=== PATIENT | male | born 1975 | race Caucasian/White ===

== ENCOUNTER 2023-10-17 03:39 | Emergency (ER) | payer OTHER ==
[~2023-10-17] VITALS: Ht 182.9 cm; Wt 113.0 kg
[2023-10-17 03:44] VITALS: TEMP 98.4
[2023-10-17] MEDS ORDERED: BISM-157 PO (03:50)
[2023-10-17] MEDS ORDERED: SERT-162 PO (03:50)
[2023-10-17] MEDS: ONDANSETRON HCL 4 MG/2 ML VIAL IVP ONE (04:04)
[2023-10-17] MEDS: SODIUM CHLORIDE 0.9% 1,000 ML IV ONE (04:05)
[2023-10-17] MEDS: ACETAMINOPHEN 500 MG TABLET PO ONE (04:06)
[2023-10-17 04:32] LABS: BASOPHILS % (AUTO) 0.3 % (0.0-2.0); EOSINOPHILS % (AUTO) 0.4 % (1.0-6.0); HEMATOCRIT 42.2 % (41-53); HEMOGLOBIN 14.2 g/dL (13.5-17.5); LYMPHOCYTES # (AUTO) 0.5 K/uL (1.0-4.8); LYMPHOCYTES % (AUTO) 3.4 % (22.0-44.0); MEAN CORPUSCULAR HEMOGLOBIN 28.4 pg (26.0-34.0); MEAN CORPUSCULAR HGB CONC 33.7 G/dL (31.0-37.0); MEAN CORPUSCULAR VOLUME 84 fL (80-100); MONOCYTES # (AUTO) 0.5 K/uL (0.1-1.0); MONOCYTES % (AUTO) 3.3 % (2.0-9.0); PLATELET COUNT (AUTO) 266 K/uL (150-450); RED BLOOD CELL COUNT(AUTO) 5.02 MIL/uL (4.50-5.90); RED CELL DISTRIBUTION WIDTH 14.2 % (11.5-14.5); WHITE BLOOD COUNT (AUTO) 14.1 K/uL (4.5-11.0)
[2023-10-17 04:39] LABS: ANION GAP 8 mmol/L (8-16); CALCIUM, TOTAL 8.5 mg/dL (8.8-10.5); CARBON DIOXIDE 29 mmol/L (22-29); CHLORIDE 104 mmol/L (98-107); CREATININE 1.02 mg/dL (0.60-1.30); GLOMERULAR FILTR. RATE CALC > 60 mL/min (>60); GLUCOSE,RANDOM 157 mg/dL (70-110); POTASSIUM 3.8 mmol/L (3.5-5.1); SODIUM SERUM 141 mmol/L (136-145); UREA NITROGEN, BLOOD 23 mg/dL (7-18)
[2023-10-17 04:45] LABS: ALANINE AMINOTRANSFERASE 35 U/L (12-78); ALBUMIN 3.3 g/dL (3.4-5.0); ALKALINE PHOSPHATASE 85 U/L (46-116); ASPARTATE AMINOTRANSFERASE 39 U/L (15-37); BILIRUBIN,TOTAL 1.6 mg/dL (0.1-1.0); LIPASE 42 U/L (16-77); TOTAL PROTEIN, SERUM 7.3 g/dL (6.4-8.2)
[2023-10-17 04:47] LABS: NEUTROPHILS % (AUTO) 92.6 % (40.0-70.0)
[2023-10-17 04:55] VITALS: BP 141/85; PULSE 73; RESP 18
[2023-10-17] MEDS ORDERED: ACET-66 PO (05:44)
[2023-10-17] MEDS ORDERED: DIPH-1130 PO (05:44)
[2023-10-17] MEDS ORDERED: ONDA-104 PO (05:44)
[2023-10-17] MEDS ORDERED: CEPH-558 PO (05:44)
[2023-10-17 07:10] LABS: APPEARANCE,URINE TURBID (CLEAR); BILIRUBIN,URINE NEGATIVE (NEGATIVE); COLOR,URINE YELLOW (YELLOW); GLUCOSE, URINE (UA) TRACE mg/dL (NEGATIVE); KETONES,URINE NEGATIVE (NEGATIVE); LEUKOCYTE ESTERASE ,URINE NEGATIVE (NEGATIVE); NITRATE,URINE NEGATIVE (NEGATIVE); OCCULT BLOOD,URINE NEGATIVE (NEGATIVE); PH,URINE 5.5 (5.0-8.0); PROTEIN,URINE TRACE mg/dL (NEGATIVE); SPECIFIC GRAVITIY, URINE 1.031 (1.003-1.030); UROBILINOGEN,URINE <=1.0 mg/dL (<=1.0)
[2023-10-17 07:42] LABS: AMORPHOUS SEDIMENT,UR Many /LPF (None Seen); BACTERIA,URINE None Seen /HPF (None Seen); RBC,URINE None Seen /HPF (0-2); WBC,URINE None Seen /HPF (0-5)
== END 2023-10-17 05:59 | disposition home or self-care (01) ==
LOC: EMS 03:41
DX: K52.9 Noninfective gastroenteritis and colitis, unspecified (principal); K42.9 Umbilical hernia without obstruction or gangrene; F12.90 Cannabis use, unspecified, uncomplicated
CPT/HCPCS: 99283; 96374; 96361; 80053; 81001; 83690; 85025; 36415; J2405; J7030

== ENCOUNTER 2024-07-21 09:02 | Emergency (ER) | payer OTHER ==
[~2024-07-21] VITALS: Ht 182.9 cm; Wt 113.6 kg
[~2024-07-21 09:02] MED LIST: ACET-66 PO; BISM-157 PO; CEPH-558 PO; DIPH-1130 PO; ONDA-104 PO; SERT-162 PO
[2024-07-21 09:10] VITALS: BP 136/77; PULSE 66; RESP 16; TEMP 98.3; O2SAT 98
[2024-07-21] MEDS: PERTUSS(ACELL),DIPH,TET/PF 0.5 ML SYRINGE [ADULT] IM. ONE (11:04)
[2024-07-21] MEDS ORDERED: CEPH-558 PO (11:47)
== END 2024-07-21 11:59 | disposition home or self-care (01) ==
LOC: EMS 09:02
DX: S90.851A Superficial foreign body, right foot, initial encounter (principal); F12.90 Cannabis use, unspecified, uncomplicated; Z79.899 Other long term (current) drug therapy; W45.8XXA Other foreign body or object entering through skin, initial encounter; Y93.89 Activity, other specified; Y92.89 Other specified places as the place of occurrence of the external cause; Y99.8 Other external cause status
CPT/HCPCS: 90471; 90715; 99283

== ENCOUNTER 2025-02-10 17:59 | Emergency (ER) | payer OTHER ==
[~2025-02-10] VITALS: Ht 182.9 cm; Wt 114.0 kg
[2025-02-10 18:08] VITALS: BP 121/72; PULSE 92; RESP 18; TEMP 98.2; O2SAT 98
[2025-02-10] MEDS: ACETAMINOPHEN 500 MG TABLET PO ONE (21:05)
[2025-02-10] MEDS: IBUPROFEN 400 MG TABLET PO ONE (21:06)
== END 2025-02-10 22:33 | disposition left against medical advice (07) ==
LOC: EMS 17:59
DX: S80.212A Abrasion, left knee, initial encounter (principal); S80.211A Abrasion, right knee, initial encounter; M25.561 Pain in right knee; M25.562 Pain in left knee; M25.551 Pain in right hip; F12.90 Cannabis use, unspecified, uncomplicated; Z79.899 Other long term (current) drug therapy; Z98.890 Other specified postprocedural states; Y08.89XA Assault by other specified means, initial encounter; Y93.89 Activity, other specified; Y92.89 Other specified places as the place of occurrence of the external cause; Y99.8 Other external cause status
CPT/HCPCS: 73502; 99284